=== PATIENT | male | born 1940 | race American Indian/Alaskan Native ===

== ENCOUNTER 2020-06-07 12:05 | Emergency (ER) | payer MEDICARE ==
[2020-06-07 15:50] LABS: Basophils % (Auto) 0.7 % (0.0-1.8); Eosinophils # (Auto) 0.1 K/mm3 (0.0-0.4); Eosinophils % (Auto) 2.4 % (0.0-4.3); Hematocrit 45.1 % (35.5-45.6); Hemoglobin 15.3 gm/dl (11.8-15.2); Lymphocytes # (Auto) 2.3 K/mm3 (1.2-5.4); Lymphocytes % (Auto) 37.6 % (13.4-35.0); Mean Corpuscular HGB Conc 34 % (32-34); Mean Corpuscular Volume 96 fl (84-94); Monocytes # (Auto) 0.5 K/mm3 (0.0-0.8); Monocytes % (Auto) 7.8 % (0.0-7.3); Platelet Count 201 K/mm3 (140-440); Red Blood Count 4.68 M/mm3 (3.65-5.03)
--- NOTE | 2020-06-07 16:26 | Event Note ---
ED Screening Note Date of service: 06/07/20 Time: 16:25 ED Screening Note: Patient here for medical clearance for alcohol detox for anchor This initial assessment/diagnostic orders/clinical plan/treatment(s) is/are subject to change based on patients health status, clinical progression and re- assessment by fellow clinical providers in the ED. Further treatment and workup at subsequent clinical providers discretion. Patient/guardian urged not to elope from the ED as their condition may be serious if not clinically assessed and managed. Initial orders include: Labs
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
[2020-06-07 17:12] LABS: BUN/Creatinine Ratio 10; Blood Urea Nitrogen 9 mg/dL (9-20); Calcium 8.9 mg/dL (8.4-10.2); Hemolysis Index 20
[2020-06-07 20:50] LABS: Bilirubin,Urine NEG (Negative); Blood,Urine SM (Negative); Color,Urine Yellow (Yellow); Protein,Urine <15 mg/dL mg/dL (Negative); WBC,Urine < 1.0 /HPF (0.0-6.0)
[2020-06-07 21:04] LABS: Amphetamine Screen,Urine Negative; Benzodiazepines Screen,Urine Negative; Methadone Screen,Urine Negative; Opiate Screen,Urine Negative
[2020-06-07 21:55] LABS: Cannabinoid Screen,Urine Positive; Cocaine Screen,Urine Positive
[2020-06-07 22:24] VITALS: BP 154/88
== END 2020-06-07 22:26 | disposition home or self-care (01) ==
LOC: ED 12:05
DX: Z04.6 Encounter for general psychiatric examination, requested by authority (principal)
CPT/HCPCS: 36415; 80048; 80307; 80320; 81001; 85025; 99283; G0480

== ENCOUNTER 2020-06-15 00:12 | Emergency (ER) | payer MEDICARE ==
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
[2020-06-15 01:25] LABS: Hematocrit 39.5 % (35.5-45.6); Hemoglobin 13.2 gm/dl (11.8-15.2); Mean Corpuscular HGB Conc 33 % (32-34); Mean Corpuscular Volume 96 fl (84-94); Platelet Count 197 K/mm3 (140-440); Red Blood Count 4.13 M/mm3 (3.65-5.03); Red Cell Distribution Width 14.3 % (13.2-15.2)
[2020-06-15 01:37] LABS: Alanine Aminotransferase 14 units/L (7-56); Albumin 3.7 g/dL (3.9-5); BUN/Creatinine Ratio 9; Blood Urea Nitrogen 10 mg/dL (9-20); Hemolysis Index 18
[2020-06-15 02:36] LABS: Bilirubin,Urine NEG (Negative); Blood,Urine NEG (Negative); Color,Urine Straw (Yellow); Mucus,Urine FEW /HPF; Protein,Urine <15 mg/dL mg/dL (Negative); Urobilinogen,Urine < 2.0 mg/dL (<2.0)
[2020-06-15 03:06] LABS: Total Cells Counted 100
[2020-06-15 03:07] LABS: RBC Morphology Normal
[2020-06-15 09:39] VITALS: BP 177/84
--- NOTE | 2020-06-15 09:43 | Emergency Department Report ---
ED Chest Pain HPI - General Chief Complaint: Chest Pain Stated Complaint: HEART MURMER/CHEST PAIN/MEDS FOR PROSTATE Time Seen by Provider: 06/15/20 09:33 Source: patient Mode of arrival: Ambulatory Limitations: No Limitations - History of Present Illness Initial Comments: 79-year-old male, history of alcohol abuse, prostate enlargement, peripheral vascular disease with stent, presents to the ED with chest pain. Patient is currently at [facility] for alcohol abuse. He presents to the ED yesterday, stating that he was having some chest pain, and also that he needed medication for his prostate. Patient states the chest pain has now resolved. States it was located across his chest and both shoulders, described as a stabbing pain. He denies any cough, fever, shortness of breath. States pain was intermittent, only lasting approximately 30 seconds at a time. Denies any aggravating or alleviating factors. Patient states when he initially presented to [facility], they were unable to give him his prostate medication. However after waiting in the waiting room for several hours, patient states he went back over to [place] and he was given his prostate medicine. Patient denies any urinary retention. MD Complaint: chest pain -: Last night Onset: during rest Pain Location: other (Entire anterior chest) Pain Radiation: none Severity: moderate Quality: sharp Consistency: intermittent, now resolved Improves With: nothing Worsens With: nothing re: denies: nausea, vomting, diaphoresis, dyspnea Other Symptoms: denies: cough, fever, leg swelling - Related Data Allergies Allergy/AdvReac Type Severity Reaction Status Date / Time watermelon Allergy Vomiting Verified 06/15/20 00:48 wheat Allergy Itching Verified 06/15/20 00:48 Heart Score - HEART Score History: Slightly suspicious EKG: Normal Age: > 65 Risk factors: > 3 risk factors or hx of atherosclerotic disease Troponin: < normal limit HEART Score: 4 - EKG Read Time Time EKG Completed: 09:47 EKG Read Time: 09:50 ED Review of Systems ROS: Stated complaint: HEART MURMER/CHEST PAIN/MEDS FOR PROSTATE Other details as noted in HPI Comment: All other systems reviewed and negative Respiratory: denies: shortness of breath Cardiovascular: chest pain Genitourinary: as per HPI ED Past Medical Hx - Past Medical History Hx Hypertension: Yes Additional medical history: spinal injury, prostate enlargement - Social History Smoking Status: Current Every Day Smoker ED Physical Exam - General Limitations: No Limitations General appearance: alert, in no apparent distress - Head Head exam: Present: atraumatic, normocephalic - Eye Eye exam: Present: normal appearance, EOMI - ENT ENT exam: Present: mucous membranes moist - Neck Neck exam: Present: normal inspection - Respiratory Respiratory exam: Present: normal lung sounds bilaterally. Absent: respiratory distress - Cardiovascular Cardiovascular Exam: Present: regular rate, normal rhythm - GI/Abdominal GI/Abdominal exam: Present: soft. Absent: distended, tenderness - Extremities Exam Extremities exam: Present: normal inspection, pedal edema. Absent: calf tend erness - Neurological Exam Neurological exam: Present: alert, oriented X3 - Psychiatric Psychiatric exam: Present: normal affect, normal mood - Skin Skin exam: Present: warm, dry, intact, normal color ED Course Vital Signs 06/15/20 06/15/20 00:48 09:00 Temperature 98.3 F Pulse Rate 74 60 Respiratory 16 15 Rate Blood Pressure 170/74 Blood Pressure 177/84 [Right] O2 Sat by Pulse 97 99 Oximetry ED Medical Decision Making - Lab Data Result diagrams: 06/15/20 00:53 06/15/20 00:53 - EKG Data -: EKG Interpreted by Al EKG shows normal: sinus rhythm, axis, intervals, QRS complexes, ST-T waves Rate: normal - EKG Data Interpretation: no acute changes - Radiology Data Radiology results: report reviewed, image reviewed - Medical Decision Making EKG normal. Troponin negative x2. Chest pain has resolved. Patient states he is currently not having any issues with urination. He will be discharged at this time. UA shows no evidence of UTI. Outpatient follow-up advised. Return precautions given. Critical care attestation.: If time is entered above; I have spent that time in minutes in the direct care of this critically ill patient, excluding procedure time. ED Disposition Clinical Impression: Chest pain Disposition: DC-01 TO HOME OR SELFCARE Is pt being admited?: No Condition: Stable Instructions: Nonspecific Chest Pain, Adult Referrals: PRIMARY CARE, [Primary Care Provider] - 3-5 Days Time of Disposition: 09:53
--- NOTE | 2020-06-17 11:43 | Electrocardiograph Report ---
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
--- NOTE | 2020-06-17 11:47 | Electrocardiograph Report ---
[facility] Test Date: 2020-06-15 Test Time: 09:47:47 Pat Name: CHET PRESTON Department: Room: Gender: M Otr Flatbed Driver: WILLIAM : 1940 Requested By: ARTEMIO CARR Order Number: [id number] Reading MD: Mikayla Perez Measurements Intervals [place] Rate: 56 P: 66 NE: 166 QRS: 11 QRSD: 78 T: 37 QT: 436 QTc: 413 Interpretive Statements Sinus bradycardia Atrial premature complexes Probable left ventricular hypertrophy Compared to ECG 06/15/2020 00:59:36 Electronically Signed On 06-17-2020 11:46:54 EDT by Mikayla Perez
== END 2020-06-15 11:45 | disposition home or self-care (01) ==
LOC: ED 00:12
DX: R07.89 Other chest pain (principal); I10 Essential (primary) hypertension; F17.200 Nicotine dependence, unspecified, uncomplicated; Z91.018 Allergy to other foods
CPT/HCPCS: 36415; 71046; 80053; 81001; 84484; 85007; 85025; 93005